=== PATIENT | female | born 1945 | race Caucasian/White ===

== ENCOUNTER → 2017-01-13 | Outpatient (REF) | payer OTHER ==
[~2017-01-13] MED LIST: ACET65TA; HYDR25TA6; IBUP600T; PRIN20TA3; VICO5TAB
== END ==
LOC: M SFHCCLAY 07:47
PROVIDERS: ATTEND Nurse Practitioner Family
DX: E11.9 Type 2 diabetes mellitus without complications (principal); E78.4 Other hyperlipidemia; E55.9 Vitamin D deficiency, unspecified

== ENCOUNTER → 2017-04-19 | Outpatient (REF) | payer OTHER ==
[2017-04-19 11:50] LABS: MEAN CORPUSCULAR HEMOGLOBIN 30.2 pg (27.0-33.0); MEAN CORPUSCULAR HGB CONC 32.2 g/dl (32.0-36.5); MEAN CORPUSCULAR VOLUME 93.7 fl (80.0-96.0); RED CELL DISTRIBUTION WIDTH 13.1 % (11.5-14.5); WHITE BLOOD COUNT 6.1 10^3/uL (4.0-10.0)
[2017-04-19 12:13] LABS: ALBUMIN 4.1 GM/DL (3.2-5.2); ALBUMIN/GLOBULIN RATIO 1.11 (1.00-1.93); BILIRUBIN,TOTAL 0.6 MG/DL (0.2-1.0); CALCIUM LEVEL 9.6 MG/DL (8.8-10.2); CREATININE FOR GFR 1.25 MG/DL (0.55-1.02); POTASSIUM SERUM 4.7 MEQ/L (3.5-5.1); TOTAL PROTEIN 7.8 GM/DL (6.4-8.2)
== END ==
LOC: M SFHCCLAY 07:01
PROVIDERS: ATTEND Nurse Practitioner Family
DX: E11.9 Type 2 diabetes mellitus without complications (principal); I10 Essential (primary) hypertension; E78.4 Other hyperlipidemia; E55.9 Vitamin D deficiency, unspecified

== ENCOUNTER → 2017-10-14 | Outpatient (REF) | payer OTHER ==
[2017-10-14 17:33] LABS: URIC ACID 6.4 MG/DL (2.6-6.0)
[2017-10-14 17:33] LABS: RHEUMATOID FACTOR QUANT < 10.0 IU/ML (<15.0)
[2017-10-14 19:42] LABS: ERYTHROCYTE SEDIMENTATION RATE 16 mm/hr (0-30)
[2017-10-19 00:07] LABS: ANTINUCLEAR ANTIBODIES DIRECT Negative (Negative); Lyme Disease IgG/IgM Antibodie <0.91 ISR (0.00-0.90); Lyme Disease IgM Ab Quantitati <0.80 index (0.00-0.79)
== END ==
LOC: M SFHCCLAY 11:10
DX: M25.50 Pain in unspecified joint (principal)
CPT/HCPCS: 84550

== ENCOUNTER 2017-11-27 14:56 | Emergency (ER) | payer OTHER | END 2017-11-27 17:37 | disposition home or self-care (01) | LOC: M ED 14:56 | DX: Z04.1 Encounter for examination and observation following transport accident (principal); V49.50XA Passenger injured in collision with unspecified motor vehicles in traffic accident, initial encounter; Y92.410 Unspecified street and highway as the place of occurrence of the external cause; M47.812 Spondylosis without myelopathy or radiculopathy, cervical region; M43.12 Spondylolisthesis, cervical region; E11.9 Type 2 diabetes mellitus without complications; I10 Essential (primary) hypertension; M54.2 Cervicalgia; M81.0 Age-related osteoporosis without current pathological fracture; M17.12 Unilateral primary osteoarthritis, left knee; M19.041 Primary osteoarthritis, right hand; M19.042 Primary osteoarthritis, left hand | CPT/HCPCS: 72125 ==

== ENCOUNTER → 2018-04-28 | Outpatient (REF) | payer OTHER ==
[2018-04-28 17:06] LABS: CHOLESTEROL LEVEL 201 MG/DL (<200); CHOLESTEROL RISK RATIO 4.674 (<5); HDL CHOLESTEROL 43 MG/DL (>40); LDL CHOLESTEROL 103 MG/DL (<100); NON-HDL-C 158 MG/DL; TRIGLYCERIDES LEVEL 277 MG/DL (<150)
[2018-04-28 17:11] LABS: ESTIMATED AVERAGE GLUCOSE 200 MG/DL (60-110); HEMOGLOBIN A1c 8.6 %
[2018-04-28 17:15] LABS: TOTAL 25(OH) VITAMIN D 35.4 NG/ML (30.0-100.0)
[2018-04-28 17:16] LABS: TOTAL PROTEIN,RANDOM URINE 34.7 MG/DL (0.0-12.0)
[2018-04-28 17:24] LABS: MAU/CREAT RATIO 19.5 MCG/MG (0.0-30.0)
== END ==
LOC: M SFHCCLAY 08:47
DX: E11.8 Type 2 diabetes mellitus with unspecified complications (principal); E78.49 Other hyperlipidemia; E55.9 Vitamin D deficiency, unspecified
CPT/HCPCS: 83036

== ENCOUNTER → 2018-09-29 | Outpatient (REF) | payer MEDICARE ==
[~2018-09-29] MED LIST changes: +ASPI81TA85 PO; +FENO150C PO; +FURO40TA2 PO; +LOSA50TA5 PO; +MELO15TA28 PO; +METF500T13 PO; +PRAV10TA4 PO; +VITA200025 PO
[2018-09-29 13:00] LABS: HEMATOCRIT 39.9 % (36.0-47.0); HEMOGLOBIN 12.9 g/dl (12.0-15.5); MEAN CORPUSCULAR HEMOGLOBIN 29.5 pg (27.0-33.0); MEAN CORPUSCULAR HGB CONC 32.3 g/dl (32.0-36.5); MEAN CORPUSCULAR VOLUME 91.3 fl (80.0-96.0); PLATELET COUNT, AUTOMATED 229 10^3/uL (150-450); RED BLOOD COUNT 4.37 10^6/uL (4.00-5.40); WHITE BLOOD COUNT 7.7 10^3/uL (4.0-10.0)
[2018-09-29 13:12] LABS: HEMOGLOBIN A1c 8.5 %
[2018-09-29 13:34] LABS: ALBUMIN 4.3 GM/DL (3.2-5.2); ALT/SGPT 42 U/L (12-78); BILIRUBIN,TOTAL 0.6 MG/DL (0.2-1.0); BLOOD UREA NITROGEN 52 MG/DL (7-18); CALCIUM LEVEL 10.3 MG/DL (8.8-10.2); CARBON DIOXIDE LEVEL 24 MEQ/L (21-32); CHLORIDE LEVEL 103 MEQ/L (98-107); CHOLESTEROL LEVEL 248 MG/DL (<200); CHOLESTEROL RISK RATIO 7.294 (<5); GLOMERULAR FILTRATION RATE 22.2 (>39); GLUCOSE, FASTING 186 MG/DL (70-100); HDL CHOLESTEROL 34 MG/DL (>40); NON-HDL-C 214 MG/DL; SODIUM LEVEL 139 MEQ/L (136-145); TOTAL 25(OH) VITAMIN D 31.8 NG/ML (30.0-100.0); TOTAL PROTEIN 7.6 GM/DL (6.4-8.2); TRIGLYCERIDES LEVEL 410 MG/DL (<150)
== END ==
LOC: M SFHCCLAY 09:17
PROVIDERS: ATTEND Nurse Practitioner Family
DX: I10 Essential (primary) hypertension (principal); E11.8 Type 2 diabetes mellitus with unspecified complications; E78.49 Other hyperlipidemia; E55.9 Vitamin D deficiency, unspecified

== ENCOUNTER → 2018-10-31 | Outpatient (REF) | payer MEDICARE ==
[2018-10-31 18:29] LABS: ALBUMIN 4.5 GM/DL (3.2-5.2); CALCIUM LEVEL 9.8 MG/DL (8.8-10.2); CREATININE FOR GFR 1.87 MG/DL (0.55-1.30); GLOMERULAR FILTRATION RATE 28.2 (>39); PHOSPHORUS LEVEL 3.2 MG/DL (2.5-4.9); POTASSIUM SERUM 3.9 MEQ/L (3.5-5.1)
== END ==
LOC: M SFHCCLAY 09:15
PROVIDERS: ATTEND Nurse Practitioner Family
DX: E11.8 Type 2 diabetes mellitus with unspecified complications (principal)

== ENCOUNTER → 2019-02-06 | Outpatient (CLI) | payer MEDICARE ==
[~2019-02-06] MED LIST changes: +ATOR40TA75 PO; +D32000TA2 PO; +DICL1GEL3 TOP; +FENO160T10 PO; +FURO20TA2 PO; +TRAM50TA2 PO
--- NOTE | 2019-02-06 10:08 | REP ---
CHEST, TWO VIEWS: HISTORY: Hernia. COMPARISON: 07/16/2009. The lungs are clear. The heart is normal in size. The pulmonary vasculature is normal in appearance. Degenerative change is present in the thoracic spine. IMPRESSION: No acute disease. Electronically Signed by Quinton Saba MD 02/06/2019 11:19 A
[2019-02-06 13:36] LABS: HEMATOCRIT 39.1 % (36.0-47.0); HEMOGLOBIN 12.6 g/dl (12.0-15.5); MEAN CORPUSCULAR HEMOGLOBIN 30.1 pg (27.0-33.0); MEAN CORPUSCULAR HGB CONC 32.2 g/dl (32.0-36.5); MEAN CORPUSCULAR VOLUME 93.3 fl (80.0-96.0); PLATELET COUNT, AUTOMATED 210 10^3/uL (150-450); RED BLOOD COUNT 4.19 10^6/uL (4.00-5.40); WHITE BLOOD COUNT 7.4 10^3/uL (4.0-10.0)
[2019-02-06 13:45] LABS: INR 1.09; PROTHROMBIN TIME 13.8 SECONDS (11.8-14.0)
[2019-02-06 14:02] LABS: ALBUMIN 4.2 GM/DL (3.2-5.2); BILIRUBIN,TOTAL 0.5 MG/DL (0.2-1.0); CALCIUM LEVEL 9.9 MG/DL (8.8-10.2); CREATININE FOR GFR 1.66 MG/DL (0.55-1.30); GLOMERULAR FILTRATION RATE 32.2 (>39); POTASSIUM SERUM 4.3 MEQ/L (3.5-5.1); TOTAL PROTEIN 7.2 GM/DL (6.4-8.2)
[2019-02-06 14:25] LABS: ERYTHROCYTE SEDIMENTATION RATE 21 mm/hr (0-30)
== END ==
LOC: M CLY 08:10
PROVIDERS: ATTEND Orthopaedic Surgery
DX: Z01.818 Encounter for other preprocedural examination (principal); M17.12 Unilateral primary osteoarthritis, left knee

== ENCOUNTER → 2019-03-29 | Outpatient (REF) | payer MEDICARE ==
[~2019-03-29] MED LIST changes: +ACET-683 PO
[2019-03-29 12:57] LABS: INR 1.08; PROTHROMBIN TIME 13.7 SECONDS (11.8-14.0)
[2019-03-29 12:58] LABS: HEMATOCRIT 41.8 % (36.0-47.0); HEMOGLOBIN 13.2 g/dl (12.0-15.5); MEAN CORPUSCULAR HEMOGLOBIN 30.4 pg (27.0-33.0); MEAN CORPUSCULAR HGB CONC 31.6 g/dl (32.0-36.5); MEAN CORPUSCULAR VOLUME 96.3 fl (80.0-96.0); PLATELET COUNT, AUTOMATED 245 10^3/uL (150-450); RED BLOOD COUNT 4.34 10^6/uL (4.00-5.40); WHITE BLOOD COUNT 7.3 10^3/uL (4.0-10.0)
[2019-03-29 13:19] LABS: ALBUMIN 4.2 GM/DL (3.2-5.2); BILIRUBIN,TOTAL 0.5 MG/DL (0.2-1.0); CALCIUM LEVEL 9.9 MG/DL (8.8-10.2); CREATININE FOR GFR 1.63 MG/DL (0.55-1.30); GLOMERULAR FILTRATION RATE 32.9 (>39); POTASSIUM SERUM 4.5 MEQ/L (3.5-5.1); TOTAL PROTEIN 7.3 GM/DL (6.4-8.2)
[2019-03-29 13:59] LABS: ERYTHROCYTE SEDIMENTATION RATE 28 mm/hr (0-30)
== END ==
LOC: M LABDRAWC 11:13
PROVIDERS: ATTEND Orthopaedic Surgery
DX: Z01.818 Encounter for other preprocedural examination (principal); M17.12 Unilateral primary osteoarthritis, left knee

== ENCOUNTER → 2019-03-29 | Outpatient (REF) | payer MEDICARE ==
[2019-03-29 13:03] LABS: CHOLESTEROL RISK RATIO 4.135 (<5); CREATININE FOR GFR 1.66 MG/DL (0.55-1.30); GLOMERULAR FILTRATION RATE 32.2 (>39)
[2019-03-29 13:21] LABS: MALB URINE SIEMENS 10.9 MG/L; MAU/CREAT RATIO 10.6 MCG/MG (0.0-30.0)
[2019-03-29 13:30] LABS: HEMOGLOBIN A1c 6.5 %
== END ==
LOC: M SFHCCLAY 08:38
PROVIDERS: ATTEND Nurse Practitioner Family
DX: Z01.818 Encounter for other preprocedural examination (principal); N19 Unspecified kidney failure; E11.8 Type 2 diabetes mellitus with unspecified complications; E78.49 Other hyperlipidemia; M79.12 Myalgia of auxiliary muscles, head and neck

== ENCOUNTER 2019-04-11 07:15 | Inpatient (IN) | payer MEDICARE ==
--- NOTE | 2019-04-06 16:52 | HPE ---
DATE OF SCHEDULED ADMISSION: 04/11/2019 HISTORY OF THE PRESENT ILLNESS: HISTORY OF PRESENT ILLNESS: This is a pleasant female with continuing symptomatic left knee osteoarthritis. She has consented for a left total knee arthroplasty per Dr. Silvano Schwarz. Medical optimization per Dr. Tanner and [facility] 02/13/2019 and 03/14/2019 respectively. X-rays consistent with advanced osteoarthritis. ALLERGIES: None known to drugs. MEDICATION LIST: Includes: - Tylenol 500 mg two tablets orally as needed - vitamin D3 1000 units one tablet orally three times a week - aspirin adult low dose 81 mg tablet delayed release one tablet orally four days per week - blood glucose test pressure kit, lancets and strips - Lasix 40 mg tablet, 1/2 tablet orally daily - metformin HCl 1000 mg tablet one tablet with a meal orally - atorvastatin calcium 40 mg tablet one tablet orally once a day - losartan potassium HCTZ 50-12.5 mg tablet one tablet orally once a day - fenofibrate 160 mg tablet one tablet with meals orally once a day - She was taking diclofenac sodium 1% gel to the left knee three times a day, which was discontinued and there was some concern that that may have elevated her BUN and made her labs appear to show some chronic kidney disease. MEDICAL PROBLEM LIST: Includes: Symptomatic left knee osteoarthritis. Hypertension. Diabetes. Some chronic kidney disease based on her recent BUN, creatinine, GFR. Umbilical hernia present since 1979. Lyme disease. Obesity. PAST SURGICAL HISTORY: Tubal ligation 1974. Left elbow 1983. Abdominal hernia one 07/14. Right carpal tunnel surgery 12/12. Left carpal tunnel, left elbow 04/13. FAMILY HISTORY: Positive for hypertension, heart disease, cancer. SOCIAL HISTORY: Nonsmoker. Denies ethanol intake or illicit drugs. REVIEW OF SYSTEMS: Denies chest pain, shortness of breath, dyspnea on exertion, fever, chills, malaise, upper respiratory or urinary tract symptoms. LABORATORY DATA: Results per [facility] 03/29/2019 showing a glucose at 142, BUN 43, creatinine blood 1.63. GFR 32.9, indicating stage III chronic kidney disease. MCV 96.3. MCHC 31.6. Otherwise within normal limits. Chest x-ray: No acute disease as read by Dr. Saba, service date 02/06/2019, [facility] [place] radiology report. EKG: I was not able to get access to today. PHYSICAL EXAMINATION: Height 5 feet 4 inches, weight 232, temperature 98.4, blood pressure 126/82, pulse 82, respirations 16. This is a pleasant, well developed, well nourished, obese female in no acute distress. She is alert and oriented times three. Mood and affect are appropriate. She is ambulating with favoring of her right lower extremity. No gross antalgia about the left. Normocephalic. Neck: Supple. Negative jugular venous distention (JVD) or bruits. Lungs: Clear. Chest: Negative murmur, gallops, or rubs. Abdomen: Soft, nontender times four. Lower extremities were inspected. The skin is intact, benign noninfectious looking. Left knee: Positive medial and lateral joint line tenderness with a valgus osteoarthritic alignment, crepitance. Patellofemoral joint (PFJ) is congruent, static and dynamic. Negative popliteal fossa mass or pain. IMPRESSION: 1. Left knee symptomatic advanced tricompartmental valgus degenerative joint disease (DJD). 2. The patient consented for a left total knee arthroplasty per Dr. Silvano Schwarz. 3. Medical optimization per [facility] and primary care provider (PCP), Dr. Tanner. 4. director corporate security to operating room (OR) 2 grams IV Kefzol in OR. 5. Sequential compression device (SCD) and thromboembolism deterrents (TEDs) in operating room. MTDD
[2019-04-11] VITALS (8 sets, daily range): BP systolic 127–144; BP diastolic 63–90
[~2019-04-11] VITALS: Ht 162.6 cm; Wt 107.5 kg
[~2019-04-11 07:15] MED LIST changes: +LR 1,000 ML IV ONE
[2019-04-11] MEDS: ceFAZolin SOD 2 GM in IV 1 EA IV ONE ×2 (07:34→09:56)
[2019-04-11] MEDS: ACETAMINOPHEN 500 MG TAB PO ONE ×2 (07:34→14:49)
[2019-04-11] MEDS ORDERED: TRANEXAMIC ACID 100 MG/ML 10ML VIAL As Ordered ONE (07:52)
[2019-04-11] MEDS ORDERED: BUPIVACAINE HCL 0.25% 10 ML VIAL As Ordered ONE (07:52)
[2019-04-11] MEDS ORDERED: EPINEPHrine INJ 1 MG/ML 1ML AMP As Ordered ONE (07:53)
[2019-04-11] MEDS ORDERED: ceFAZolin 1GM INJ (J0690 PER 500MG) As Ordered ONE (07:53)
[2019-04-11] MEDS ORDERED: BUPIVACAINE LIPOSOME/PF 1.3% 20ML VIAL (13.3MG/ML)(EXPAREL)(C9290 PER1MG) As Ordered ONE (07:53)
[2019-04-11] MEDS ORDERED: MIDAZOLAM INJ 2 MG/2 ML VIAL (J2250) As Ordered ONE ×3 (08:13→10:42)
[2019-04-11] MEDS ORDERED: LIDOCAINE 2% INJ 100 MG/5 ML SDV (FOR ANES.) As Ordered ONE (08:13)
[2019-04-11] MEDS ORDERED: dexameTHASONE 4 MG/ML 1ML VIAL (J1100) As Ordered ONE (08:13)
[2019-04-11] MEDS ORDERED: ONDANSETRON 4MG/2ML VIAL (J2405) As Ordered ONE (08:13)
[2019-04-11] MEDS ORDERED: PROPOFOL 200 MG/20 ML VIAL As Ordered ONE ×3 (08:13→11:11)
[2019-04-11] MEDS ORDERED: BUPIVACAINE HCL 0.25% 30 ML VIAL As Ordered ONE (08:17)
[2019-04-11] MEDS ORDERED: fentaNYL 100 MCG/2 ML INJECTION (J3010) As Ordered ONE ×2 (08:17→10:42)
[2019-04-11] MEDS: FUROSEMIDE 20 MG TAB PO SCH (09:00)
[2019-04-11] MEDS: hydroCHLOROthiazide 12.5 MG CAPSULE PO SCH (09:00)
[2019-04-11] MEDS: ATORVASTATIN 20 MG TAB PO SCH (09:00)
[2019-04-11] MEDS ORDERED: ePHEDrine SULFATE 25 MG/5 ML(5MG/ML) SYRINGE As Ordered ONE (10:03)
[2019-04-11] MEDS ORDERED: FLEET ENEMA PR PRN (12:00)
[2019-04-11] MEDS ORDERED: fentaNYL 100 MCG/2 ML INJECTION (J3010) IV PRN (12:00)
[2019-04-11] MEDS ORDERED: LR 1,000 ML IV SCH (12:00)
[2019-04-11] MEDS ORDERED: ACETAMINOPHEN TAB 650MG DOSE (2X325MG) PO PRN (12:00)
[2019-04-11] MEDS ORDERED: METOCLOPRAMIDE INJ 10MG/2ML VIAL (J2765) IV PRN (12:00)
[2019-04-11] MEDS ORDERED: HYDROMORPHONE HCL 0.5 MG/ 0.5 ML SYRINGE (J1170 PER 1) IV PRN ×2 (12:00)
[2019-04-11] MEDS ORDERED: ONDANSETRON 4MG/2ML VIAL (J2405) IV PRN (12:00)
[2019-04-11] MEDS ORDERED: oxyCODONE 5MG TAB PO PRN (12:00)
--- NOTE | 2019-04-11 12:12 | REP ---
Left knee three views postoperative study: There is a total knee arthroplasty. The components are tightly applied and in satisfactory positions alignment. There are skin sania. Electronically Signed by Richard Suero MD 04/11/2019 12:04 P
[2019-04-11] MEDS ORDERED: dexameTHASONE 10 MG/1 ML VIAL PRES.FREE (J1100) ONE (13:24)
[2019-04-11] MEDS ORDERED: LIDOCAINE 1% MDV 20ML VIAL ONE (13:24)
[2019-04-11] MEDS ORDERED: BUPIVACAINE HCL 0.25% 30 ML VIAL ONE (13:24)
[2019-04-11] MEDS ORDERED: oxyCODONE 5MG TAB As Ordered ONE (13:33)
[2019-04-11] MEDS ORDERED: GLUCAGON FOR INJ 1 MG VIAL (J1610) SC PRN (15:00)
[2019-04-11] MEDS ORDERED: DEXTROSE 50% 50 ML SYRINGE IV PRN (15:00)
[2019-04-11] MEDS ORDERED: GLUCOSE 4 GM CHEW TABLET PO PRN (15:00)
--- NOTE | 2019-04-11 15:03 | CR.PDOC ---
General Date of Consultation: Apr 11, 2019 Consultation REASON FOR CONSULTATION/CHIEF COMPLAINT: Status post knee arthroplasty HISTORY OF PRESENT ILLNESS: Patient is 73 years old female with past medical history of arthritis, hypertension, diabetes mellitus, obesity, CKD presented hospital for planned left knee arthroplasty. The surgery was done today. When I saw patient she was receiving comfortably on the bed. She denies fever, chills, palpitations, shortness of breath, nausea, vomiting, diarrhea or dysuria ALLERGIES: Please see below. HOME MEDICATIONS: Please see below. PAST MEDICAL HISTORY: Includes: Symptomatic left knee osteoarthritis. Hypertension. Diabetes. Some chronic kidney disease based on her recent BUN, creatinine, GFR. Umbilical hernia present since 1979. Lyme disease. Obesity. PAST SURGICAL HISTORY: Umbilical hernia present since 1979. Right carpal tunnel surgery 12/12. Left carpal tunnel, left elbow 04/13. FAMILY HISTORY: Father: from liver cancer Mother: From heart attack SOCIAL HISTORY: Tobacco use: Denied ETOH: Denied Illicit drug use: Denied REVIEW OF SYSTEMS: 10 point review of system negative except listed above PHYSICAL EXAMINATION: General: NAD HEENT: PERRLA, EOMI Chest: Lungs clear to auscultation CV: S1-S2 Abdomen: Moderately distended, nontender Extremity: +1 pitting edema, dressing over the left kidney LABORATORY DATA: Please see below. ASSESSMENT/PLAN: Patient is 73 years old female with past medical history of arthritis, hypertension, diabetes mellitus, obesity, CKD presented hospital for planned left knee arthroplasty Hypertension Blood pressures under control Continue losartan and hydrochlorothiazide Will check CBC, BMP Diabetes type 2 Diabetes diet Insulin sliding scale Status post left knee replacement Pain management Anticoagulation per orthosurgeon Obesity Nutrition consult in the outpatient settings Vital Signs/I&O Vital Signs Date Time Temp Pulse Resp B/P (MAP) Pulse Ox O2 Delivery O2 Flow Rate FiO2 04/11/19 14:19 97.8 82 16 128/64 (85) 94 04/11/19 11:55 2 Laboratory Data Labs 24H Laboratory Tests 2 04/11/19 07:56: [place]side [place] [place] 155H Allergies Coded Allergies: No Known Allergies (Unverified , 01/26/19) Home Medications Scheduled Acetaminophen (Acetaminophen) 500 Mg Tablet, 500 MG PO TID, (Reported) Aspirin (Aspir 81) 81 Mg Tab, 81 MG PO DAILY, #30 (Reported) Atorvastatin Calcium (Atorvastatin Calcium) 40 Mg Tablet, 40 MG PO DAILY for 30 Days, #30 (Reported) Cholecalciferol (Vitamin D3) (Vitamin D3) 2,000 Unit Tablet, 1 TAB PO DAILY for 30 Days, #30 (Reported) Fenofibrate (Fenofibrate) 160 Mg Tablet, 160 MG PO DAILY, (Reported) Furosemide (Furosemide) 20 Mg Tablet, 20 MG PO DAILY for 30 Days, #30 (Reported) Losartan/Hydrochlorothiazide (Losartan-Hctz 50-12.5 mg Tab) 1 Tab Tab, 1 TAB PO DAILY, (Reported) Metformin HCl (Metformin HCl) 500 Mg Tab, 1,000 MG PO BID, #2 (Reported) Scheduled PRN Diclofenac Sodium (Diclofenac Sodium) 1% 100GM Gel..gram., 1 APLCT TOP TIDP PRN for pain for 21 Days, #100 (Reported) ELIU YOUSSEF DO Apr 11, 2019 15:03
[2019-04-11] MEDS: ceFAZolin SOD 2 GM in IV 1 EA IV SCH ×2 (16:40→21:26)
[2019-04-11] MEDS: HumaLOG INSULIN (NovoLOG) PER UNIT SC SCH (18:07)
[2019-04-11] MEDS: PERCOCET 5MG/325MG TAB PO PRN (19:37)
[2019-04-11] MEDS ORDERED: LOSARTAN 50 MG TAB PO SCH (21:00)
--- NOTE | 2019-04-11 22:14 | RO ---
DATE OF PROCEDURE: 04/11/2019 PREPROCEDURE DIAGNOSIS: Left knee valgus degenerative arthritis. POSTPROCEDURE DIAGNOSIS: Left knee valgus degenerative arthritis. PROCEDURE: Left total knee arthroplasty using a #5 Attune cruciate-retaining cemented femoral component with a size 5 tibial tray and a 10 mm rotating platform polyethylene insert, and a 32 mm polyethylene button. Prosthesis made by [employer]. It was an Attune knee. SURGEON: Dr. Silvano Shcwarz DECAL DECORATOR: Mr. Yung Mckeon ANESTHESIA: Spinal with left femoral nerve block. COMPLICATIONS: None. SPECIMENS: Joint surface. ESTIMATED BLOOD LOSS: 20 mL. DESCRIPTION OF PROCEDURE: Antibiotics were given intravenously preoperatively and then successful left femoral nerve block, and then a spinal anesthetic was induced. Tourniquet was placed on the left upper thigh and not inflated. Left lower extremity was carefully prepped and draped in the usual sterile fashion, elevated, and after appropriate time-out, the tourniquet was inflated. A longitudinal incision was made for a medial parapatellar approach to the knee. Bovie cautery was used to coagulate crossing vessels down to the deep fascia, the arthrotomy was performed, and then subperiosteal dissection around the proximal medial and lateral tibial plateau was performed. Then, the patella was everted, and the knee was flexed, anterior cruciate ligament (ACL) debrided, drill placed down the center of the femoral canal, followed by the intramedullary pedro, the distal femoral cutting jig set at 9 mm resection level at 5 degree valgus for a left knee. Distal femoral cut was performed, AP sizing jig measured for a size #5. 3 degrees of external rotation were dialed in. We looked at Dana's line and the epicondylar access appeared to be appropriate and thus the 4-in-1 block applied. Anterior, posterior, chamfer cuts performed. The sulcus jig was then applied, and the sulcus cut performed. Then, we exposed the proximal tibia. I used the extramedullary alignment jig to estimate being parallel to the mechanical axis, referencing off the lateral tibial condyle at 4 mm resection level. And this caused us to take 10 mm from the good side medially. The block was pinned into position. The extramedullary pedro was used to check that we appeared to be parallel to the mechanical axis. Proximal tibial osteotomy was performed. We placed the lamina survey research professor laterally and performed a completion medial meniscectomy, debridement of posteromedial osteophytes. Then placed the lamina survey research professor medially and performed a completion lateral meniscectomy and debridement of posterolateral osteophytes. Spacer block, 10 mm, had the best fit to varus/valgus stress testing in both flexion and in extension, and she had good stability. Thus, I did not feel a cruciate-sacrificing component was needed at this point. We exposed the proximal tibia, sized it for a #5 tibial tray, which was pinned into position, followed by the reamer and broach. Trial polyethylene was placed, followed by the trial femoral component. Brought the knee into extension, everted the patella, performed patellar osteotomy, sized for a 32 button. Lug holes drilled. Prosthesis applied and patellofemoral tracking was anatomic. Thus, we drilled the lug holes for the femur and then removed all the trial components. Mr. Yung Mckeon mixed the cement on the back table as I prepared the bony surfaces for cementing with a copious amount of pulsatile lavage irrigant solution. He was also critical to the success of this difficult surgery by helping to manipulate this large leg with large soft tissue envelope, helped with appropriate soft tissue retraction, helped to mix the cement, helped to close the wound, amongst many other tasks to allow me to perform the operation smoothly, efficiently, and safely. After all the bony surfaces were thoroughly irrigated and dried, we cemented the tibial tray, removed excess cement, placed the polyethylene, cemented the femoral component, removed excess cement, and then brought the knee into extension, cemented the patellar button, held it with a clamp until the cement hardened. And as we were awaiting this, we copiously pulsatile lavage irrigated the knee joint and then applied tranexamic acid. It is noteworthy that Exparel was placed in the subperiosteal tissues around the distal femur and the proximal tibia prior to preparing the bone cement. We then began closing the apex of the arthrotomy with #1 PDS sutures, one at the medial parapatellar area, and then #1 double-armed running Stratafix used to close the capsule. Then, the tourniquet was released. Then, we irrigated between layers, closed the deep subdermal tissues with interrupted #2-0 PDS sutures, skin was closed with sania, covered by an Optifoam and a dry sterile bulky dressing. She was then transferred to the recovery room in stable condition. There were no intraoperative complications.
[2019-04-12] MEDS: PERCOCET 5MG/325MG TAB PO PRN ×3 (01:08→10:55)
[2019-04-12] MEDS: ceFAZolin SOD 2 GM in IV 1 EA IV SCH (03:26)
[2019-04-12 06:11] VITALS: BP 108/53
[2019-04-12 06:16] LABS: HEMATOCRIT 31.9 % (36.0-47.0); HEMOGLOBIN 10.5 g/dl (12.0-15.5); MEAN CORPUSCULAR HEMOGLOBIN 30.3 pg (27.0-33.0); MEAN CORPUSCULAR HGB CONC 32.9 g/dl (32.0-36.5); MEAN CORPUSCULAR VOLUME 92.2 fl (80.0-96.0); PLATELET COUNT, AUTOMATED 185 10^3/uL (150-450); RED BLOOD COUNT 3.46 10^6/uL (4.00-5.40)
[2019-04-12 06:29] LABS: INR 1.19; PROTHROMBIN TIME 14.8 SECONDS (11.8-14.0)
[2019-04-12 06:38] LABS: CALCIUM LEVEL 8.8 MG/DL (8.8-10.2); CREATININE FOR GFR 1.92 MG/DL (0.55-1.30); GLOMERULAR FILTRATION RATE 27.3 (>39); MAGNESIUM LEVEL 1.6 MG/DL (1.8-2.4); POTASSIUM SERUM 4.2 MEQ/L (3.5-5.1)
[2019-04-12] MEDS ORDERED: XARE10TA PO (06:50)
[2019-04-12] MEDS ORDERED: PERC5TAB12 PO (06:50)
[2019-04-12] MEDS ORDERED: MOM 30ML SUSPENSION UDC PO SCH (09:00)
[2019-04-12] MEDS ORDERED: MIRALAX *UNIT DOSE* 17GM PACKET PO SCH (09:00)
[2019-04-12] MEDS ORDERED: ASPIRIN 81 MG ENTERIC TAB PO SCH (09:00)
[2019-04-12] MEDS ORDERED: SENOKOT S TAB PO SCH (09:00)
--- NOTE | 2019-04-12 09:04 | IPNPDOC ---
Subjective Date Seen The patient was seen on 04/12/19. Subjective Chief Complaint/HPI feels ok no significant knee pain at this time, but has not yet gotten out of bed for PT Constitutional: Denies: Chills ENT: Denies: Head Aches Pulmonary: Denies: Dyspnea, Cough, Pleuritic Chest Pain Cardiovascular: Denies: Chest Pain, Palpitations, Orthopnea Gastrointestinal: Denies: Nausea, Abdominal Pain Genitourinary: Denies: Dysuria Neurological: Denies: Weakness, Numbness Objective Physical Examination General Exam: Positive: Alert, Cooperative, No Acute Distress Eye Exam: Positive: PERRLA, EOMI ENT Exam: Positive: Atraumatic Neck Exam: Positive: Supple; Negative: thyromegaly Chest Exam: Positive: Clear to auscultation, Normal air movement; Negative: Rales Heart Exam: Positive: Rate Normal; Negative: Murmurs Abdomen Exam: Positive: Normal bowel sounds, Soft; Negative: Tenderness Extremity Exam: Negative: Clubbing, Edema Skin Exam: Positive: Nl turgor and temperature Psych Exam: Positive: Mental status NL Assessment /Plan Problems (1) Status post total left knee replacement Status: Acute Response to Treatment: Improving Problem Text: management per Ortho and PT. seems to be doing well at this point. (2) Diabetes mellitus Status: Chronic Response to Treatment: Stable Problem Specific Plan: Monitor Clinically, Repeat Labs Problem Text: Has had creatinines >1.4 since September so should not resume metformin. currently on sliding scale insulin coverage. (3) Hypertension associated with stage 4 chronic kidney disease due to type 2 diabetes mellitus Status: Chronic Response to Treatment: Worse Problem Specific Plan: Monitor Clinically, Repeat Labs Problem Text: Creatinine 1.66 before surgery, now 1.92. Will d/c losartan for now. BP is satisfactory at this point, continue HCTZ for now. If creat continues to rise then request Nephrology consult. (4) Anemia due to blood loss, acute Status: Acute Response to Treatment: Stable Problem Specific Plan: Monitor Clinically Problem Text: Hgb was normal before surgery. She has CKD so may be slow for her to reconstitute red cell mass. Monitor. (5) Mixed diabetic hyperlipidemia associated with type 2 diabetes mellitus Status: Chronic Response to Treatment: Stable Problem Specific Plan: Monitor Clinically Problem Text: LDL well controlled on current atorvastatin, triglycerides approx 270 on last check. Continue atorvastatin. Plan/VTE VTE Prophylaxis Ordered?: Yes VS, I&O, 24H, Fishbone Vital Signs/I&O Vital Signs Date Time Temp Pulse Resp B/P (MAP) Pulse Ox O2 Delivery O2 Flow Rate FiO2 04/12/19 06:45 13 04/12/19 06:11 98.0 76 108/53 (71) 96 04/11/19 11:55 2 I&O- Last 24 Hours up to 6 AM 04/12/19 05:59 Intake Total 2380 ml Output Total 1050 ml Balance 1330 ml Laboratory Data 24H LABS Laboratory Tests 2 04/12/19 06:02: Nucleated Red Blood Cells % (auto) 0.0, Prothrombin Time 14.8H, Prothromb Time International Ratio 1.19, Anion Gap 7L, Glomerular Filtration Rate 27.3L, Blood Urea Nitrogen 32H, Creatinine 1.92H, Sodium Level 138, Potassium Level 4.2, Chloride Level 106, Carbon Dioxide Level 25, Calcium Level 8.8, Magnesium Level 1.6L CBC/BMP Laboratory Tests 04/12/19 06:02 Red Blood Count 3.46 L, Mean Corpuscular Volume 92.2, Mean Corpuscular Hem oglobin 30.3, Mean Corpuscular Hemoglobin Concent 32.9, Red Cell Distribution Width 11.9, Calcium Level 8.8 Patrick Qiu MD Apr 12, 2019 09:04
[2019-04-12] MEDS: ATORVASTATIN 20 MG TAB PO SCH (09:27)
[2019-04-12] MEDS: FUROSEMIDE 20 MG TAB PO SCH (09:27)
[2019-04-12] MEDS: hydroCHLOROthiazide 12.5 MG CAPSULE PO SCH (09:27)
[2019-04-12] MEDS: HumaLOG INSULIN (NovoLOG) PER UNIT SC SCH (09:28)
[2019-04-12 10:00] VITALS: BP 105/52
[2019-04-12] MEDS ORDERED: RIVAROXABAN 10 MG TAB (XARELTO) PO SCH (18:00)
--- NOTE | 2019-04-13 17:42 | DSES ---
DATE OF ADMISSION: 04/11/2019 DATE OF DISCHARGE: 04/12/2019 ATTENDING PHYSICIAN: Dr. Schwarz ADMISSION DIAGNOSIS: Left knee valgus degenerative arthritis. OTHER DIAGNOSES: 1. Hypertension. 2. Diabetes. 3. Chronic kidney disease. 4. Lyme disease. 5. Obesity. 6. Umbilical hernia. DISCHARGE DIAGNOSIS: Left knee degenerative valgus arthritis, status post left total knee arthroplasty. HISTORY: The patient is a 73-year-old female with progressively worsening left knee pain and stiffness. She failed to improve with conservative measures. She continued to have symptoms with weightbearing activities and activities of daily living. She consented for an elective left total knee arthroplasty with Dr. Schwarz for her continued symptoms. OPERATION PERFORMED: Left total knee arthroplasty. HOSPITAL COURSE: The patient underwent a left total knee arthroplasty under spinal anesthesia with left femoral nerve block. Surgery was uneventful and her hospital course was without complication. She was up with physical therapy, weightbearing as tolerated on the left lower extremity. The patient was discharged on oral pain medications and will resume her preoperative medications and diet. The patient will use her thromboembolic-deterrent stockings and take her anticoagulant as directed to prevent deep venous thrombosis. The patient will followup in our office in 12-14 days for a wound check and staple removal. She is encouraged to contact our office sooner if there is any increase in pain, redness, drainage, numbness or tingling in the extremity, fever greater than 101 degrees, or any other concerns. Please see medical records for additional details.
== END 2019-04-12 12:15 | disposition home or self-care (01) | DRG 470 ==
LOC: M OR 07:15 → M MS5PR 14:10
PROVIDERS: ADMIT Orthopaedic Surgery; ATTEND Orthopaedic Surgery
PROC: 0SRD0J9 Replacement of Left Knee Joint with Synthetic Substitute, Cemented, Open Approach (ICD-10-PCS; principal; 2019-04-11 09:45)
DX: M17.12 Unilateral primary osteoarthritis, left knee (principal); N18.4 Chronic kidney disease, stage 4 (severe); D62 Acute posthemorrhagic anemia; Z68.41 Body mass index [BMI] 40.0-44.9, adult; I12.9 Hypertensive chronic kidney disease with stage 1 through stage 4 chronic kidney disease, or unspecified chronic kidney disease; E11.22 Type 2 diabetes mellitus with diabetic chronic kidney disease; E78.2 Mixed hyperlipidemia; E66.9 Obesity, unspecified; K42.9 Umbilical hernia without obstruction or gangrene; Z79.82 Long term (current) use of aspirin; Z79.84 Long term (current) use of oral hypoglycemic drugs; Z79.899 Other long term (current) drug therapy

== ENCOUNTER → 2019-08-01 | Outpatient (REF) | payer MEDICARE ==
[~2019-08-01] MED LIST changes: -LR 1,000 ML IV ONE; +PERC5TAB12 PO; +XARE10TA PO
[2019-08-01 18:38] LABS: CHOLESTEROL RISK RATIO 4.351 (<5)
[2019-08-01 18:46] LABS: TOTAL 25(OH) VITAMIN D 31.7 NG/ML (30.0-100.0)
[2019-08-01 18:49] LABS: HEMOGLOBIN A1c 6.9 %
== END ==
LOC: M SFHCCLAY 09:32
PROVIDERS: ATTEND Nurse Practitioner Family
DX: E11.8 Type 2 diabetes mellitus with unspecified complications (principal); E78.5 Hyperlipidemia, unspecified; E55.9 Vitamin D deficiency, unspecified

== ENCOUNTER → 2020-07-29 | Outpatient (CLI) | payer MEDICARE ==
[~2020-07-29] MED LIST changes: -ASPI81TA85 PO; +ASPI81TA86 PO
--- NOTE | 2020-07-29 10:37 | DEXAMM ---
INDICATION: Z13.820 OSTEOPOROSIS/Z78.0 MENOPAUSE. COMPARISON: Comparison studies are from January 29, 2015, September 03, 2009.. TECHNIQUE: Bone density was measured using dual-energy x-ray absorptionmetry (DEXA). FINDINGS: AP SPINE L1-L4 BMD 1.473 g/cm2 Young Adult T-Score 2.3 Age Matched Z-Score 4.0. LT FEMUR, TOTAL BMD 1.092 g/cm2 Young Adult T-Score 0.7 Age Matched Z-Score 2.4. LT NECK BMD 1.005 g/cm2 Young Adult T-Score -0.2 Age Matched Z-Score 1.7. RT FEMUR, TOTAL BMD 1.033 g/cm2 Young Adult T-Score 0.2 Age Matched Z-Score 1.9. RT NECK BMD 0.943 g/cm2 Young Adult T-Score -0.7 Age Matched Z-Score 1.2. IMPRESSION: There is normal bone density of the spine. There is normal bone density of the left hip. There is normal bone density of the right hip. The density of the spine has increased 1.0% since the initial exam on September 03, 2009. The density of the spine decreased 1.5% since most recent exam on January 29, 2015. The density of the left hip has decreased 5.9% since initial exam on September 03, 2009. The density of the left hip has decreased 6.3% since most recent exam on January 29, 2015. The density of the right hip has decreased 10.9% since the initial exam on September 03, 2009. The density of the right hip has decreased 5.1% since the most recent exam on January 29, 2015. FOLLOW-UP: Recommendation for the next bone density exam: 5 years. <Electronically signed by Eugenio Estevez > 07/29/20 1035
== END ==
LOC: M WHC 09:36
PROVIDERS: ATTEND Family Medicine
DX: Z13.820 Encounter for screening for osteoporosis (principal); Z78.0 Asymptomatic menopausal state

== ENCOUNTER → 2021-04-08 | Outpatient (CLI) | payer MEDICARE ==
--- NOTE | 2021-04-08 10:30 | REP ---
INDICATION: M54.2 NECK PAIN COMPARISON: None. TECHNIQUE: AP, lateral, flexion/extension, bilateral oblique, and open-mouth views. FINDINGS: Generalized osteopenia and moderate multilevel degenerative changes include subtle endplate sclerosis. There is minimal disc space narrowing and 2 mm of anterolisthesis at C5-6. There is advanced endplate sclerosis, disc space narrowing and hypertrophic changes at C6-7. No acute fracture/compression injury. Posterior elements and spinous processes appear intact. IMPRESSION: Multilevel degenerative changes primarily involving C5-6 and C6-7. No acute fracture/compression injury. <Electronically signed by Scar Madrigal > 04/08/21 1025
== END ==
LOC: M CLY 09:43
PROVIDERS: ATTEND Physician Assistant
DX: M50.322 Other cervical disc degeneration at C5-C6 level (principal); M50.323 Other cervical disc degeneration at C6-C7 level
CPT/HCPCS: 72050; G0463

== ENCOUNTER → 2021-06-16 | Outpatient (CLI) | payer MEDICARE | LOC: M PLAIMG 10:56 | PROVIDERS: ATTEND Physician Assistant | DX: M50.30 Other cervical disc degeneration, unspecified cervical region (principal); M43.12 Spondylolisthesis, cervical region; M25.78 Osteophyte, vertebrae; M47.812 Spondylosis without myelopathy or radiculopathy, cervical region ==

== ENCOUNTER → 2021-08-28 | Outpatient (REF) | payer MEDICARE | LOC: M LAB REF 16:38 | PROVIDERS: ATTEND Nurse Practitioner Family | DX: N39.0 Urinary tract infection, site not specified (principal) ==

== ENCOUNTER → 2021-11-25 | Outpatient (REF) | payer MEDICARE | LOC: M SFHCCLAY 09:03 | PROVIDERS: ATTEND Physician Assistant | DX: J02.9 Acute pharyngitis, unspecified (principal) ==

== ENCOUNTER → 2022-07-08 | Outpatient (CLI) | payer MEDICARE | LOC: M CLY 14:34 | PROVIDERS: ATTEND Nurse Practitioner Family | DX: R06.00 Dyspnea, unspecified (principal) ==

== ENCOUNTER → 2022-08-04 | Outpatient (REF) | payer MEDICARE ==
[2022-08-04 18:02] LABS: ALBUMIN 4.4 G/DL (3.2-5.2); BILIRUBIN,TOTAL 0.9 MG/DL (0.3-1.2); CALCIUM LEVEL 10.4 MG/DL (8.3-10.6); CHOLESTEROL RISK RATIO 4.89 (<5); CREATININE FOR GFR 1.49 MG/DL (0.55-1.30); GLOMERULAR FILTRATION RATE 36.2 (>39); HDL CHOLESTEROL 36.6 MG/DL (>40); LDL CHOLESTEROL 81.4 MG/DL (<100); POTASSIUM SERUM 5.1 MMOL/L (3.5-5.1); TOTAL PROTEIN 7.4 G/DL (5.7-8.2)
[2022-08-04 18:34] LABS: HEMOGLOBIN A1c 8.3 % (4.0-6.0)
== END ==
LOC: M SFHCCLAY 11:23
PROVIDERS: ATTEND Nurse Practitioner Family
DX: E11.22 Type 2 diabetes mellitus with diabetic chronic kidney disease (principal); N18.4 Chronic kidney disease, stage 4 (severe)

== ENCOUNTER → 2023-03-04 | Outpatient (CLI) | payer MEDICARE ==
[~2023-03-04] MED LIST changes: +DICL100G10 TOP; -DICL1GEL3 TOP; +GASTROGRAFIN SOLUTION 30ML As Ordered ONE; +ISOVUE-370 76% 100ML VIAL As Ordered ONE
== END ==
LOC: M RAD 15:32
PROVIDERS: ATTEND Surgery
DX: K43.2 Incisional hernia without obstruction or gangrene (principal)
CPT/HCPCS: 74178; Q9963; Q9967

== ENCOUNTER → 2023-04-12 | Outpatient (REF) | payer MEDICARE ==
[~2023-04-12] MED LIST changes: -GASTROGRAFIN SOLUTION 30ML As Ordered ONE; -ISOVUE-370 76% 100ML VIAL As Ordered ONE
[2023-04-12 13:03] LABS: HEMOGLOBIN A1c 7.4 % (4.0-6.0)
[2023-04-12 13:14] LABS: CALCIUM LEVEL 9.6 MG/DL (8.3-10.6); CHOLESTEROL RISK RATIO 3.94 (<5); CREATININE FOR GFR 1.48 MG/DL (0.55-1.30); GLOMERULAR FILTRATION RATE 36.4 (>39); HDL CHOLESTEROL 36.5 MG/DL (>40); LDL CHOLESTEROL 59.5 MG/DL (<100); NON-HDL-C 107.5 MG/DL
== END ==
LOC: M SFHCCLAY 08:20
PROVIDERS: ATTEND Nurse Practitioner Family
DX: Z00.00 Encounter for general adult medical examination without abnormal findings (principal); N18.4 Chronic kidney disease, stage 4 (severe); I87.2 Venous insufficiency (chronic) (peripheral); M15.9 Polyosteoarthritis, unspecified; E11.22 Type 2 diabetes mellitus with diabetic chronic kidney disease; I12.9 Hypertensive chronic kidney disease with stage 1 through stage 4 chronic kidney disease, or unspecified chronic kidney disease

== ENCOUNTER → 2023-12-31 | Outpatient (REF) | payer MEDICARE | LOC: M SFHCCLAY 16:36 | PROVIDERS: ATTEND Nurse Practitioner Family | DX: J02.9 Acute pharyngitis, unspecified (principal); J18.9 Pneumonia, unspecified organism ==

== ENCOUNTER → 2024-04-07 | Outpatient (REF) | payer MEDICARE ==
[2024-04-07 17:07] LABS: BASO # 0.1 10^3/uL (0.0-0.2); BASO % 0.7 % (0.0-1.0); EOS # 0.2 10^3/uL (0.0-0.5); EOS % 2.2 % (0.0-3.0); HEMATOCRIT 50.7 % (36.0-47.0); HEMOGLOBIN 16.3 g/dl (12.0-15.5); LYMPH # 2.7 10^3/uL (1.5-5.0); LYMPH % 31.5 % (24.0-44.0); MEAN CORPUSCULAR HEMOGLOBIN 28.9 pg (27.0-33.0); MEAN CORPUSCULAR HGB CONC 32.1 g/dl (32.0-36.5); MEAN CORPUSCULAR VOLUME 89.9 fl (80.0-96.0); MONO # 0.6 10^3/uL (0.0-0.8); MONO % 6.8 % (2.0-8.0); NEUTROPHILS # 5.1 10^3/uL (1.5-8.5); NEUTROPHILS % 58.6 % (36.0-66.0); PLATELET COUNT, AUTOMATED 222 10^3/uL (150-450); RED BLOOD COUNT 5.64 10^6/uL (4.00-5.40); WHITE BLOOD COUNT 8.7 10^3/uL (4.0-10.0)
[2024-04-07 17:15] LABS: HEMOGLOBIN A1c 8.2 % (4.0-6.0)
[2024-04-07 17:40] LABS: BILIRUBIN,TOTAL 0.5 MG/DL (0.3-1.2); CALCIUM LEVEL 10.1 MG/DL (8.3-10.6); CHOLESTEROL RISK RATIO 4.67 (<5); CREATININE FOR GFR 1.45 MG/DL (0.55-1.30); FERRITIN 164.1 NG/ML (7.3-270.7); FOLATE 16.35 NG/ML (>5.4); GLOMERULAR FILTRATION RATE 37.2 (>39); HDL CHOLESTEROL 34.9 MG/DL (>40); LDL CHOLESTEROL 50.3 MG/DL (<100); NON-HDL-C 128.1 MG/DL; PERCENT SATURATION 21.8 % (13.2-45.0); POTASSIUM SERUM 4.2 MMOL/L (3.5-5.1); PTH INTACT 265.2 PG/ML (18.5-88.0); THYROID STIMULATING HORMONE 1.149 uIU/ML (0.55-4.78); TOTAL PROTEIN 7.4 G/DL (5.7-8.2)
[2024-04-07 17:41] LABS: FREE T4 1.28 NG/DL (0.89-1.76)
== END ==
LOC: M SFHCCLAY 14:26
PROVIDERS: ATTEND Nurse Practitioner Family
DX: Z00.00 Encounter for general adult medical examination without abnormal findings (principal); E11.22 Type 2 diabetes mellitus with diabetic chronic kidney disease; N18.4 Chronic kidney disease, stage 4 (severe); I87.2 Venous insufficiency (chronic) (peripheral); M15.9 Polyosteoarthritis, unspecified; I12.9 Hypertensive chronic kidney disease with stage 1 through stage 4 chronic kidney disease, or unspecified chronic kidney disease; E55.9 Vitamin D deficiency, unspecified

== ENCOUNTER → 2024-05-05 | Outpatient (REF) | payer MEDICARE ==
[2024-05-05 18:12] LABS: BASO # 0.1 10^3/uL (0.0-0.2); BASO % 0.7 % (0.0-1.0); EOS # 0.2 10^3/uL (0.0-0.5); EOS % 1.9 % (0.0-3.0); HEMATOCRIT 51.1 % (36.0-47.0); HEMOGLOBIN 16.3 g/dl (12.0-15.5); LYMPH # 3.4 10^3/uL (1.5-5.0); LYMPH % 27.9 % (24.0-44.0); MEAN CORPUSCULAR HEMOGLOBIN 28.7 pg (27.0-33.0); MEAN CORPUSCULAR HGB CONC 31.9 g/dl (32.0-36.5); MEAN CORPUSCULAR VOLUME 90.1 fl (80.0-96.0); MONO # 0.9 10^3/uL (0.0-0.8); MONO % 7.6 % (2.0-8.0); NEUTROPHILS # 7.4 10^3/uL (1.5-8.5); NEUTROPHILS % 61.7 % (36.0-66.0); PLATELET COUNT, AUTOMATED 218 10^3/uL (150-450); RED BLOOD COUNT 5.67 10^6/uL (4.00-5.40); WHITE BLOOD COUNT 12.1 10^3/uL (4.0-10.0)
== END ==
LOC: M SFHCCLAY 14:52
PROVIDERS: ATTEND Nurse Practitioner Family
DX: N18.4 Chronic kidney disease, stage 4 (severe) (principal)

== ENCOUNTER → 2024-05-29 | Outpatient (REF) | payer MEDICARE ==
[2024-05-29 19:56] LABS: HEMOGLOBIN A1c 8.2 % (4.0-6.0)
== END ==
LOC: M SFHCCLAY 10:52
PROVIDERS: ATTEND Nurse Practitioner Family
DX: E11.22 Type 2 diabetes mellitus with diabetic chronic kidney disease (principal)

== ENCOUNTER → 2024-07-24 | Outpatient (REF) | payer MEDICARE ==
[2024-07-24 17:56] LABS: BASO # 0.1 10^3/uL (0.0-0.2); BASO % 0.8 % (0.0-1.0); EOS # 0.2 10^3/uL (0.0-0.5); EOS % 2.3 % (0.0-3.0); HEMATOCRIT 48.7 % (36.0-47.0); HEMOGLOBIN 15.4 g/dl (12.0-15.5); LYMPH # 2.5 10^3/uL (1.5-5.0); LYMPH % 27.7 % (24.0-44.0); MEAN CORPUSCULAR HEMOGLOBIN 28.4 pg (27.0-33.0); MEAN CORPUSCULAR HGB CONC 31.6 g/dl (32.0-36.5); MEAN CORPUSCULAR VOLUME 89.9 fl (80.0-96.0); MONO # 0.7 10^3/uL (0.0-0.8); MONO % 8.4 % (2.0-8.0); NEUTROPHILS # 5.4 10^3/uL (1.5-8.5); NEUTROPHILS % 60.5 % (36.0-66.0); PLATELET COUNT, AUTOMATED 239 10^3/uL (150-450); RED BLOOD COUNT 5.42 10^6/uL (4.00-5.40); WHITE BLOOD COUNT 8.8 10^3/uL (4.0-10.0)
[2024-07-24 18:21] LABS: BILIRUBIN,TOTAL 0.7 MG/DL (0.3-1.2); CALCIUM LEVEL 10.5 MG/DL (8.3-10.6); CHOLESTEROL RISK RATIO 4.6 (<5); CREATININE FOR GFR 1.5 MG/DL (0.55-1.30); GLOMERULAR FILTRATION RATE 35.8 (>39); HDL CHOLESTEROL 39.7 MG/DL (>40); LDL CHOLESTEROL 90.1 MG/DL (<100); NON-HDL-C 143.3 MG/DL; POTASSIUM SERUM 4.7 MMOL/L (3.5-5.1); TOTAL PROTEIN 7.6 G/DL (5.7-8.2)
[2024-07-24 18:38] LABS: HEMOGLOBIN A1c 7.4 % (4.0-6.0)
== END ==
LOC: M SFHCCLAY 10:24
PROVIDERS: ATTEND Nurse Practitioner Family
DX: N18.4 Chronic kidney disease, stage 4 (severe) (principal); E11.22 Type 2 diabetes mellitus with diabetic chronic kidney disease; M15.9 Polyosteoarthritis, unspecified

== ENCOUNTER → 2024-11-02 | Outpatient (REF) | payer MEDICARE ==
[2024-11-02 18:37] LABS: BASO # 0.1 10^3/uL (0.0-0.2); BASO % 0.5 % (0.0-1.0); EOS # 0.3 10^3/uL (0.0-0.5); EOS % 2.4 % (0.0-3.0); HEMATOCRIT 48.6 % (36.0-47.0); HEMOGLOBIN 15.2 g/dl (12.0-15.5); LYMPH # 2.6 10^3/uL (1.5-5.0); LYMPH % 23.3 % (24.0-44.0); MEAN CORPUSCULAR HEMOGLOBIN 27.9 pg (27.0-33.0); MEAN CORPUSCULAR HGB CONC 31.3 g/dl (32.0-36.5); MEAN CORPUSCULAR VOLUME 89.3 fl (80.0-96.0); MONO # 0.8 10^3/uL (0.0-0.8); MONO % 7.5 % (2.0-8.0); NEUTROPHILS # 7.3 10^3/uL (1.5-8.5); PLATELET COUNT, AUTOMATED 243 10^3/uL (150-450); RED BLOOD COUNT 5.44 10^6/uL (4.00-5.40); WHITE BLOOD COUNT 11.1 10^3/uL (4.0-10.0)
[2024-11-02 18:45] LABS: ALBUMIN 3.9 G/DL (3.2-5.2); BILIRUBIN,TOTAL 0.9 MG/DL (0.3-1.2); CALCIUM LEVEL 9.9 MG/DL (8.3-10.6); CREATININE FOR GFR 1.5 MG/DL (0.55-1.30); GLOMERULAR FILTRATION RATE 35.5 (>39); POTASSIUM SERUM 4.6 MMOL/L (3.5-5.1); THYROID STIMULATING HORMONE 2.079 uIU/ML (0.55-4.78); TOTAL PROTEIN 7.3 G/DL (5.7-8.2)
== END ==
LOC: M SFHCCLAY 10:23
PROVIDERS: ATTEND Physician Assistant
DX: R68.89 Other general symptoms and signs (principal)

== ENCOUNTER → 2025-04-16 | Outpatient (REF) | payer MEDICARE ==
[~2025-04-16] MED LIST changes: +PRAV10TA PO; -PRAV10TA4 PO
[2025-04-16 18:37] LABS: ALT/SGPT 22.0 U/L (7.0-40); AST/SGOT 21.0 U/L (<34); CALCIUM LEVEL 9.9 MG/DL (8.3-10.6); CARBON DIOXIDE LEVEL 28.0 MMOL/L (20-31); CHLORIDE LEVEL 102.0 MMOL/L (98-107); CHOLESTEROL LEVEL 169.0 MG/DL (<200); CHOLESTEROL RISK RATIO 4.47 (<5); CREATININE FOR GFR 1.53 MG/DL (0.55-1.30); GLOMERULAR FILTRATION RATE 34.4 (>39); LDL CHOLESTEROL 79.4 MG/DL (<100); NON-HDL-C 131.2 MG/DL; POTASSIUM SERUM 5.0 MMOL/L (3.5-5.1); SODIUM LEVEL 144.0 MMOL/L (136-145); TRIGLYCERIDES LEVEL 259.0 MG/DL (<150)
[2025-04-16 18:54] LABS: ESTIMATED AVERAGE GLUCOSE 160.0 MG/DL (60-110)
== END ==
LOC: M SFHCCLAY 13:40
PROVIDERS: ATTEND Nurse Practitioner Family
DX: E11.22 Type 2 diabetes mellitus with diabetic chronic kidney disease (principal); N18.4 Chronic kidney disease, stage 4 (severe); M15.9 Polyosteoarthritis, unspecified; E78.5 Hyperlipidemia, unspecified; I12.9 Hypertensive chronic kidney disease with stage 1 through stage 4 chronic kidney disease, or unspecified chronic kidney disease; E66.01 Morbid (severe) obesity due to excess calories; M54.2 Cervicalgia